=== PATIENT | female | born 1960 | race Caucasian/White ===

== ENCOUNTER 2016-09-01 09:04 | Emergency (ER) | payer SELFPAY ==
--- NOTE | 2016-09-01 10:25 | RAD ---
RIGHT WRIST THREE VIEWS: History: Wrist pain after fall. FINDINGS: There are some arthritic changes of the wrist. There is some radial carpal joint space narrowing. Dr Figueroa Sanfodr raised the question of a questionable abnormality of the scaphoid. There are some minimal arthritic changes in the first carpal metacarpal joint space. IMPRESSION: No definite fracture. Navicular bone views are recommended for evaluation of the scaphoid. POS: [facility]
--- NOTE | 2016-09-01 10:26 | RAD ---
RIGHT WRIST THREE VIEWS SCAPHOID BONE VIEWS: History: Patient had a fall. There is questionable abnormality of the scaphoid. FINDINGS: On these additional projections no scaphoid fracture is seen. If there is a high clinical index of s uspicion of a scaphoid injury then a follow up in approximately 7-10 days would be recommended to ex clude occult injury. IMPRESSION: No evidence of fracture. POS: [facility]
== END 2016-09-01 10:36 | disposition home or self-care (01) ==
LOC: NAV ERS 09:04
DX: S62.001A Unspecified fracture of navicular [scaphoid] bone of right wrist, initial encounter for closed fracture (principal); E11.9 Type 2 diabetes mellitus without complications; I10 Essential (primary) hypertension; Z79.4 Long term (current) use of insulin; W01.0XXA Fall on same level from slipping, tripping and stumbling without subsequent striking against object, initial encounter; Y93.01 Activity, walking, marching and hiking
CPT/HCPCS: 29125